=== PATIENT | female | born 1965 | race Two or more races ===

== ENCOUNTER 2022-08-08 21:36 | Emergency (ER) | payer MEDICAID ==
[~2022-08-08] VITALS: Ht 154.9 cm; Wt 73.0 kg
[2022-08-09] MEDS ORDERED: KETOROLAC 60MG/2ML VIAL IM ONE (04:45)
[2022-08-09] MEDS ORDERED: VISCOUS LIDOCAINE 2% 15 ML UDC MM ONE (04:45)
[2022-08-09] MEDS ORDERED: ONDANSETRON 4MG ODT PO ONE (04:45)
[2022-08-09 05:27] VITALS: BP 124/68
[2022-08-09 05:33] LABS: CLARITY URINE CLOUDY (CLEAR); COLOR URINE DARK YELLOW (YELLOW); KETONES URINE TRACE (NEGATIVE); LEUKOCYTE ESTERASE URINE 1+ (NEGATIVE); NITRITE URINE NEGATIVE (NEGATIVE); OCCULT BLOOD URINE 1+ (NEGATIVE); PROTEIN URINE 2+ (NEGATIVE); SPECIFIC GRAVITY URINE 1.044 (1.005-1.030)
[2022-08-09 05:42] LABS: BASOPHILS % 0.4 % (0.0-2.0); EOSINOPHILS % 1.2 % (0.0-5.0); HEMATOCRIT. 40.8 % (36.0-48.0); HEMOGLOBIN. 14.4 g/dL (12.0-16.0); LYMPHOCYTES % 17.2 % (20.0-50.0); MEAN CORPUSCULAR HEMOGLOBIN 33.3 pg (28.0-32.0); MEAN CORPUSCULAR VOLUME 94.4 fL (81.0-99.0); MEAN PLATELET VOLUME 7.7 fl (7.4-10.4); MONOCYTES % 6.2 % (2.0-8.0); PLATELET 328 x1000/uL (130-400); RED BLOOD CELL COUNT 4.33 mill/uL (4.2-5.4); RED CELL DISTRIBUTION WIDTH 12.7 % (11.6-14.6)
[2022-08-09 05:47] LABS: CHLORIDE 106 mEq/L (98-107)
[2022-08-09] MEDS ORDERED: ONDA4TAB50 MT (05:59)
[2022-08-09] MEDS ORDERED: CEPH500C2 MT (05:59)
== END 2022-08-09 06:11 | disposition home or self-care (01) ==
LOC: ER 21:36
DX: N39.0 Urinary tract infection, site not specified (principal); R11.2 Nausea with vomiting, unspecified; R51.9 Headache, unspecified; R19.7 Diarrhea, unspecified
CPT/HCPCS: 36415; 80053; 81003; 81025; 85025; 96372; 99283; J1885; Q0162